=== PATIENT | female | born 1960 | race African-American/Black ===

== ENCOUNTER 2016-03-23 04:05 | Emergency (ER) | payer SELFPAY ==
[~2016-03-23] VITALS: Ht 165.1 cm; Wt 72.6 kg
[~2016-03-23 04:05] MED LIST: ASPIR 8181 MG ORAL; CIPROFLOXACIN500 M2 ORAL; HYDROCHLOROTH12.5 M2 ORAL; LISINOPRIL5 MG ORAL; NORCO 5-325 TA1 EACH ORAL; PROAIR HFA8.5 GM INH; ZOFRAN ODT4 MG ORAL
[2016-03-23] MEDS ORDERED: NKM (04:24)
[2016-03-23 04:32] VITALS: BP 184/99
[2016-03-23] MEDS ORDERED: ROBAXIN-750750 MG PO (04:38)
[2016-03-23] MEDS ORDERED: IBUPROFEN600 MG ORAL (04:38)
[2016-03-23] MEDS ORDERED: HYDROCHLOROTHIA25 MG ORAL (04:38)
[2016-03-23] MEDS ORDERED: ASPIR 8181 MG ORAL (04:38)
[2016-03-23] MEDS ORDERED: LISINOPRIL5 MG ORAL (04:38)
[2016-03-23 04:42] VITALS: BP 184/99
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
== END 2016-03-23 04:49 | disposition home or self-care (01) ==
LOC: EMR 04:33
DX: M54.2 Cervicalgia (principal); M79.602 Pain in left arm; M25.552 Pain in left hip; V49.40XA Driver injured in collision with unspecified motor vehicles in traffic accident, initial encounter; Y92.9 Unspecified place or not applicable; I10 Essential (primary) hypertension
CPT/HCPCS: 99282